=== PATIENT | male | born 1980 | race Caucasian/White ===

== ENCOUNTER 2017-12-05 16:02 | Emergency (ER) | payer SELFPAY | END 2017-12-05 16:42 | disposition left against medical advice (07) | LOC: ED 16:02 | DX: Z53.21 Procedure and treatment not carried out due to patient leaving prior to being seen by health care provider (principal) ==

== ENCOUNTER 2017-12-07 08:05 | Emergency (ER) | payer SELFPAY ==
[~2017-12-07] VITALS: Ht 177.8 cm; Wt 80.5 kg
[2017-12-07 08:09] VITALS: BP 127/86; Ht 177.8 cm; Wt 80.5 kg
== END 2017-12-07 08:49 | disposition home or self-care (01) ==
LOC: ED 08:05
DX: J06.9 Acute upper respiratory infection, unspecified (principal); M79.1 Myalgia

== ENCOUNTER 2018-02-19 17:52 | Emergency (ER) | payer SELFPAY ==
[~2018-02-19] VITALS: Ht 177.8 cm; Wt 81.6 kg
[2018-02-19 18:06] VITALS: BP 111/66; Ht 177.8 cm; Wt 81.6 kg
== END 2018-02-19 18:44 | disposition home or self-care (01) ==
LOC: ED 17:52
DX: S61.213A Laceration without foreign body of left middle finger without damage to nail, initial encounter (principal); X58.XXXA Exposure to other specified factors, initial encounter; Y93.89 Activity, other specified; Y92.89 Other specified places as the place of occurrence of the external cause; Y99.8 Other external cause status
CPT/HCPCS: 90715

== ENCOUNTER 2019-07-07 13:00 | Emergency (ER) | payer SELFPAY ==
[~2019-07-07] VITALS: Ht 177.8 cm; Wt 80.7 kg
[2019-07-07 13:05] VITALS: Ht 177.8 cm; Wt 80.7 kg
[2019-07-07 13:49] LABS: microscopic required? NO
[2019-07-07 14:23] LABS: UA SPECIFIC GRAVITY <=1.005 (1.005-1.035); urine erythrocyte NEGATIVE (NEGATIVE)
[2019-07-07 14:24] LABS: BASOPHIL % 0.4 % (0-2); PLATELET COUNT 221 x10^3mcL (130-400); RED CELL DISTRIBUTION WIDTH 12.5 % (11.5-14.5)
[2019-07-07 14:48] LABS: CARBON DIOXIDE 32.2 mmol/L (21-32); CHLORIDE SERUM 101 mmol/L (98-107); CREATININE SERUM 0.9 mg/dL (0.7-1.3); GFR1 > 60 mL/min; GLUCOSE SERUM 108 mg/dL (74-106); POTASSIUM SERUM 3.9 mmol/L (3.5-5.1); SODIUM SERUM 139 mmol/L (136-145)
[2019-07-07 14:52] LABS: ALBUMIN 3.9 g/dL (3.4-5.0); ALKALINE PHOSPHATASE 70 U/L (46-116); ALT/SGPT 26 U/L (16-63); AST/SGOT 9 U/L (15-37); BILIRUBIN TOTAL 0.59 mg/dL (0.20-1.00)
[2019-07-07 15:48] VITALS: BP 127/70
== END 2019-07-07 15:48 | disposition home or self-care (01) ==
LOC: ED 13:00
PROVIDERS: Emergency Medicine
DX: R55 Syncope and collapse (principal); J06.9 Acute upper respiratory infection, unspecified
CPT/HCPCS: J7030; Q0092

== ENCOUNTER 2019-08-10 08:37 | Emergency (ER) | payer SELFPAY ==
[~2019-08-10] VITALS: Ht 177.8 cm; Wt 79.6 kg
[2019-08-10 08:42] VITALS: Ht 177.8 cm; Wt 79.6 kg
[2019-08-10 10:30] LABS: T4(THYROXINE) 7.9 ug/dL (4.7-13.3)
[2019-08-10 11:27] VITALS: BP 128/82
== END 2019-08-10 11:27 | disposition home or self-care (01) ==
LOC: ED 08:37
PROVIDERS: Emergency Medicine
DX: R42 Dizziness and giddiness (principal); F12.90 Cannabis use, unspecified, uncomplicated; Z98.890 Other specified postprocedural states
CPT/HCPCS: 36415

== ENCOUNTER 2019-08-23 13:26 | Emergency (ER) | payer SELFPAY ==
[~2019-08-23] VITALS: Ht 177.8 cm; Wt 78.0 kg
[2019-08-23 13:31] VITALS: Ht 177.8 cm; Wt 78.0 kg
[2019-08-23 16:53] LABS: BASOPHIL % 0.1 % (0-2); PLATELET COUNT 282 x10^3mcL (130-400); RED CELL DISTRIBUTION WIDTH 12.9 % (11.5-14.5)
[2019-08-23 17:03] LABS: CALCIUM 8.4 mg/dL (8.5-10.1); CARBON DIOXIDE 28.2 mmol/L (21-32); CHLORIDE SERUM 105 mmol/L (98-107); CREATININE SERUM 0.6 mg/dL (0.7-1.3); GFR1 > 60 mL/min; GLUCOSE SERUM 92 mg/dL (74-106); SODIUM SERUM 141 mmol/L (136-145)
[2019-08-23 17:08] LABS: ALKALINE PHOSPHATASE 61 U/L (46-116); ALT/SGPT 15 U/L (16-63); AST/SGOT 12 U/L (15-37); BILIRUBIN TOTAL 0.64 mg/dL (0.20-1.00)
[2019-08-23 17:20] LABS: T3 TOTAL 1.28 ng/mL
[2019-08-23 17:28] LABS: FREE T4 0.98 ng/dL (0.76-1.46); FREE THYROXINE INDEX 2.9 ug/dL (1.4-4.5); T4(THYROXINE) 8.4 ug/dL (4.7-13.3)
[2019-08-23 18:23] VITALS: BP 132/81
== END 2019-08-23 18:23 | disposition home or self-care (01) ==
LOC: ED 13:26
PROVIDERS: Emergency Medicine
DX: F41.9 Anxiety disorder, unspecified (principal); R07.89 Other chest pain; Z98.890 Other specified postprocedural states
CPT/HCPCS: 36415; 84439